=== PATIENT | female | born 1960 | race Caucasian/White ===

== ENCOUNTER 2025-04-19 09:49 | Emergency (ER) | payer BC ==
[~2025-04-19] VITALS: Ht 177.8 cm; Wt 73.2 kg
[2025-04-19 09:57] VITALS: BP 97/64; PULSE 72; RESP 18; O2SAT 97
--- NOTE | 2025-04-19 11:05 | RADIOLOGY REPORT ---
Procedure: DI TOE(S) 04/19/2025 10:19 AM TECHNIQUE: Frontal view of the left foot and coned-down views of the 4th and 5th toes were obtained. Indication: TOE PAIN Comparison: None FINDINGS: Bones: No acute fracture or dislocation. Joint spaces are maintained. Soft tissues: Unremarkable. No radiopaque foreign body. IMPRESSION: 1. No acute osseous abnormality.
--- NOTE | 2025-04-19 11:32 | Physician Documentation ---
History of Present Illness ~ Chief Complaint: Toe pain Stated Complaint: POSS TOE FRACTURE Time Seen by MD: 10:18 OK to notify your PCP?: Yes Source: patient Mode of Arrival: POV Exam Limitations: no limitations HPI 65-year-old female with chief complaint left 4th and 5th toe pain that occurred yesterday when she dropped something on her foot. She states she has fractured her toes before and reports it feels like when she fracture them before. No pre-arrival treatment. Pain worse with weight bearing. Tetanus witin 5 years: No (Unknown) Medication Reconciliation Allergies: Coded Allergies: No Known Allergies (Unverified , 04/19/25) Past Medical History Past Medical History: No Pertinent History Review of Systems All Other Systems at this time: Reviewed and Negative Physical Exam Vital Signs: Temperature: 97.8, Source: Temporal, Heart Rate: 72, Respiratory Rate: 18, BP: 97/64, Pulse Oximetry: 97, Weight: 73.200 Oxygen Flow Rate: 0 Physical Exam General Appearance: Alert, WD/WN. NAD. HEENT: NCAT, PERRL, EOMI. Neck: Supple, trachea midline. Lungs: Breathing unlabored Extremities: left foot: Ecchymosis over the very distal 4th and 5th metatarsals and 4th and 5th toes where there is tenderness to palpation, skin intact, no erythema. Cap refill at tip of toes less 2 seconds Skin: Warm/dry, normal color Neurological: Alert and oriented x4, ambulating favoring her right foot Psychiatric: Affect congruent with mood. Procedures Procedures Place patient in a left postop shoe Progress Results/Orders Reviewed/noted all lab results: Yes Results/Orders Vital Signs 04/19/25 09:57 Temp 97.8 Pulse 72 Resp 18 B/P (MAP) 97/64 Pulse Ox 97 O2 Flow Rate 0 EKG/XRAY/CT/US/VASC/MRI Bone/Soft Tissue X-Ray (Ext.) : Additional Comment Procedure: DI TOE(S) 04/19/2025 10:19 AM TECHNIQUE: Frontal view of the left foot and coned-down views of the 4th and 5th toes were obtained. Indication: TOE PAIN Comparison: None FINDINGS: Bones: No acute fracture or dislocation. Joint spaces are maintained. Soft tissues: Unremarkable. No radiopaque foreign body. IMPRESSION: 1. No acute osseous abnormality. Medical Decision Making Additional information obtaine: N/A Findings n/a General Diff Dx:Considerations: Unlikely: Other Knee Diff Dx:Considerations: Unlikely: Other Ankle Diff Dx:Considerations: Unlikely: Other Foot Diff Dx:Considerations: Include: Abrasion, Arthritis, Cellulitis, Contusion, Dislocation, DJD, Fracture-metatarsal, Fracture-phalynx, Fracture- tarsal, Gout, Hematoma, Ingrown toenail, Laceration, Malunion, Neurovascular injury, Open fracture, Paronychia, Puncture, Rheumatoid, Sprain, Septic, Subungual hematoma, Ulcer; Unlikely: Other Toe Diff Dx:Considerations: Unlikely: Other Departure Time of Disposition: 11:33 Disposition: 01 HOME / SELF CARE / HOMELESS Impression: Primary Impression: Trauma of toe of left foot Qualified Codes: S99.922A - Unspecified injury of left foot, initial encounter Additional Impressions: Toe pain, left Contusion of foot, left Qualified Codes: S90.32XA - Contusion of left foot, initial encounter Condition: Stable Discharge Instructions: General Discharge Instructions Additional Instructions: If pain persists after 14 days I recommend repeat x-rays Referrals: NO PRIMARY CARE PROVIDER (PCP) Education Educated: Patient Educated regarding: diagnosis, treatment, need for follow up Signature Scribe Signature: x Attestation: RAMIRO Rmairez Apr 19, 2025 11:32
[2025-04-19 11:45] VITALS: TEMP 97.8
== END 2025-04-19 11:45 | disposition home or self-care (01) ==
LOC: ER 09:51
DX: S90.32XA Contusion of left foot, initial encounter (principal); X58.XXXA Exposure to other specified factors, initial encounter; Y93.89 Activity, other specified; Y92.89 Other specified places as the place of occurrence of the external cause; Y99.8 Other external cause status
CPT/HCPCS: 73660; 99283; L3260